=== PATIENT | female | born 1950 | race Caucasian/White ===

== ENCOUNTER 2023-03-29 13:59 | Observation (INO) ==
[2023-03-29 14:38] VITALS: BMI 35.5
--- NOTE | 2023-03-29 15:00 | DR.GENAD ---
HPI Time Seen Time Seen by Provider: 03/29/23 14:47 PCP Primary Care Physician: Lio De La Paz Complaint/Symptoms Chief Complaint Doctors Comments: 72 y/o female presents for evaluation. History of Schatzki's ring, esophageal stricture in the past, patient feels that it is causing her problems again. Stretched greater than a year ago. Having difficulty swallowing, foods and liquids. Feels that is worsening her COPD, coughing frequently with it, having difficulty getting up mucus. Strangled when she lays back. Sleeping with 3 pillows. No edema. Denies fevers or chills. Has a moist cough. Was diagnosed with flu last week. Chief Complaint:: Pt states "the ring in my throat is closing up", SOB with exertion, having to sleep sitting up, "I gurgle so much I can't hardly breathe", not eating, not drinking, unable to cough up mucus from chest d/t throat closing up Self Treatment fo Chief Complaint: States she is able to swallow meds w/o s/sx of choking, has to use swallowing precautions when this issue is exacerbated COVID-19 Coronavirus risk:travel/contact w/high risk person: No Has patient experienced Coronavirus symptoms: Yes Coronavirus symptoms experienced: Shortness of Breath Nurses notes reviewed Nurses Notes Review: Yes Source History Provided: Patient Mode of Arrival Mode of Arrival: Ambulatory Timing Onset of Chief Complaint: 03/08/23 PMH PMH Past Medical History: Yes Past Medical History: Arthritis, Asthma, COPD, GERD and Hypertension Past Medical History Comment: "arthritis from my neck to my feet", A.Fib, allergies, hx cervical cancer Past Surgical History: Yes Surgical History: Appendectomy, Cholecystectomy, Hysterectomy and Tonsillectomy Family History History of Family Medical Conditions: Yes Family Medical History: Diabetes Mellitus, Cancer, Coronary Artery Disease, Heart Failure and Hypertension Social History Does patient currently use any type of tobacco product: No Have you used tobacco products in the last 12 months: No Type of Tobacco Use: None Does any household member use tobacco: No Alcohol Use: None Do you use any recreational Drugs:: No Lives With: Family Lives Where: Home Travel Risk Coronavirus risk:travel/contact w/high risk person: No Has patient experienced Coronavirus symptoms: Yes Coronavirus symptoms experienced: Shortness of Breath Infectious screening In the last 2 months have you had wt loss of >10#?: NO Have you had fever, night sweats or hemotysis?: No Have you traveled outside the country in the last 6 months?: No Isolation: Standard ROS Review of Systems Constitutional: Weakness Eyes: No Symptoms Reported ENTM: No Symptoms Reported Respiratoy: Moist Cough and Short of Breath Cardiovascular: No Symptoms Reported Gastrointestinal/Abdominal: See HPI Genitourinary: No Symptoms Reported Neurological: No Symptoms Reported Musculoskeletal: No Symptoms Reported Integumentary: No Symptoms Reported All Other Systems: Reviewed and Negative PE Vital Signs Vitals: Vital Signs Temperature 98.7 F Pulse Rate 61 Respiratory Rate 29 Blood Pressure 149/70 O2 Sat by Pulse Oximetry 96 General General Appearance: Alert and In No Apparent Distress Eyes Eye exam: PERRL and EOMI ENT ENT Exam: Normal Exam, Normal Oropharynx and Mucous Membranes Moist Neck Neck Exam: Normal Inspection and Full ROM; negative Tenderness Respiratory Respiratory Exam: Other (+ faint exp wheezing); negative Accessory Muscle Use or Respiratory Distress Cardiovascular Cardiovascular Exam: Regular Rate, Normal Rhythm and Normal Heart Sounds Abdominal Exam Abdominal Exam: Normal Bowel Sounds and Soft; negative Tenderness Extremities Extremities Exam: Normal Inspection and Full ROM; negative Edema Back Back Exam: Normal Inspection Neurologic Neurological Exam: Alert, Oriented X3 and CN II-XII Intact; negative Motor Sensory Deficit Skin Skin Exam: Warm and Dry COURSE Treatment Treatment: 72-year-old female, history of COPD, history of Schatzki's ring, having increased difficulty in swallowing of the past several weeks. Feels that she may need to get it stretched again. Difficulty lying flat, feels gurgling in her chest. Having difficulty bringing up mucus. Has been coughing. Workup initiated. 1651 -labs overall acceptable has a normal CBC normal CMP troponin and BNP. She is positive for type a flu, she was positive last week as well. Will consult surgery, Dr. Galan, for EGD and probable esophageal stretching in the a.m., will admit to medicine, Dr. Ho ROR Labs Reviewed Laboratory Results Reviewed?: Yes 03/29/23 15:21 03/29/23 15:21 Laboratory: WBC 7.2 X10^3/uL (3.6-10.0) 03/29/23 15:21 RBC 4.32 X10^6/uL (3.5-5.4) 03/29/23 15:21 Hgb 12.7 g/dL (12.0-16.0) 03/29/23 15:21 Hct 37.8 % (36.0-47.0) 03/29/23 15:21 MCV 87.4 fL (80.0-100.0) 03/29/23 15:21 MCH 29.5 pg (27.0-34.0) 03/29/23 15:21 MCHC 33.7 g/dL (33.0-35.0) 03/29/23 15:21 RDW 13.5 % (11.6-16.5) 03/29/23 15:21 Plt Count 296 X10^3/uL (150.0-450.0) 03/29/23 15:21 MPV 7.5 fL (7.4-11.0) 03/29/23 15:21 Neut % (Auto) 60.8 % (42.0-75.0) 03/29/23 15:21 Lymph % (Auto) 28.6 % (21.0-51.0) 03/29/23 15:21 Yell % (Auto) 7.6 % (0.0-13.0) 03/29/23 15:21 Eos % (Auto) 1.9 % (0.9-2.9) 03/29/23 15:21 Baso % (Auto) 1.1 % (0.2-1.0) H 03/29/23 15:21 Neut # (Auto) 4.4 x10^3/uL (2.2-4.8) 03/29/23 15:21 Lymph # (Auto) 2.1 X10^3/uL (1.3-2.9) 03/29/23 15:21 Yell # (Auto) 0.5 x10^3/uL (0.3-0.8) 03/29/23 15:21 Eos # (Auto) 0.1 x10^3/uL (0.0-0.2) 03/29/23 15:21 Baso # (Auto) 0.1 X10^3/uL (0.0-0.1) 03/29/23 15:21 Absolute Nucleated RBC 0.0 /100WBC 03/29/23 15:21 Sodium 133 mmol/L (136-145) L 03/29/23 15:21 Corrected Sodium TNP 03/29/23 15:21 Potassium 4.1 mmol/L (3.5-5.1) 03/29/23 15:21 Chloride 100 mmol/L (98-107) 03/29/23 15:21 Carbon Dioxide 25.5 mmol/L (21-32) 03/29/23 15:21 BUN 6 mg/dL (7-18) L 03/29/23 15:21 Creatinine 0.59 mg/dL (0.55-1.02) 03/29/23 15:21 Est GFR (MDRD) Af Amer > 60 (>60) 03/29/23 15:21 Est GFR (MDRD) Non-Af > 60 (>60) 03/29/23 15:21 Glucose 81 mg/dL (65-99) 03/29/23 15:21 Calcium 9.1 mg/dL (8.5-10.1) 03/29/23 15:21 Corrected Calcium TNP 03/29/23 15:21 Total Bilirubin 0.60 mg/dL (0.2-1.0) 03/29/23 15:21 AST 29 Units/L (15-37) 03/29/23 15:21 ALT 25 Units/L (12-78) 03/29/23 15:21 Alkaline Phosphatase 109 Units/L (46-116) 03/29/23 15:21 Troponin I High Sens 8.8 ng/L (4.0-60.0) 03/29/23 15:21 B-Natriuretic Peptide 78.6 pg/mL (0-79) 03/29/23 15:21 Total Protein 7.8 g/dL (6.4-8.2) 03/29/23 15:21 Albumin 3.5 g/dL (3.4-5.0) 03/29/23 15:21 Globulin 4.3 g/dL (2.5-4.5) 03/29/23 15:21 Albumin/Globulin Ratio 0.8 Ratio (1.1-2.1) L 03/29/23 15:21 Lipase 15 Units/L (16-77) L 03/29/23 15:21 SARS-CoV-2 (PCR) Negative (NEGATIVE) 03/29/23 15:21 Influenza Type A (PCR) Positive (NEGATIVE) A 03/29/23 15:21 Influenza Type B (PCR) Negative (NEGATIVE) 03/29/23 15:21 RSV (PCR) Negative (NEGATIVE) 03/29/23 15:21 Sodium a bit low at 133. XRAY X-ray Results: CXR - + COPD changes. EKG Rate: 56 [place]: Normal Rhythm: NSR ST: Normal Opioid Opioid Risk Tool Age (Elliot box if 16-45): No History of Preadolescent Sexual Abuse: No Total: 0 Total Score Risk Category: Low Risk Copyright: [facility] predicting aberrant behaviors Discharge Plan Diagnosis Discharge Problem: Dysphagia, Influenza A, COPD (chronic obstructive pulmonary disease) Discharge Plan Patient Disposition: 09 ADMITTED INPATIENT Condition: Stable Orders to Discharge Patient Discharge Orders: Transfer (Routine); Ordered 03/29/23 Ordered By: Master Mcelroy
[2023-03-29] MEDS ORDERED: PROTONIX INJ 40 MG VIAL IVP ONE (15:11)
[2023-03-29] MEDS ORDERED: NS 500 ML IV 500 ML IV ONE ×2 (15:11→15:17)
[2023-03-29] MEDS ORDERED: PROTONIX INJ 40 MG VIAL ONE (15:17)
[2023-03-29 15:36] LABS: BASOPHILS # (AUTO) 0.1 X10^3/uL (0.0-0.1); BASOPHILS % (AUTO) 1.1 % (0.2-1.0); EOSINOPHILS # (AUTO) 0.1 x10^3/uL (0.0-0.2); EOSINOPHILS % (AUTO) 1.9 % (0.9-2.9); HEMATOCRIT 37.8 % (36.0-47.0); HEMOGLOBIN 12.7 g/dL (12.0-16.0); LYMPHOCYTES # (AUTO) 2.1 X10^3/uL (1.3-2.9); LYMPHOCYTES % (AUTO) 28.6 % (21.0-51.0); MEAN CORPUSCULAR HEMOGLOBIN 29.5 pg (27.0-34.0); MEAN CORPUSCULAR HGB CONC 33.7 g/dL (33.0-35.0); MEAN CORPUSCULAR VOLUME 87.4 fL (80.0-100.0); MEAN PLATELET VOLUME 7.5 fL (7.4-11.0); MONOCYTES # (AUTO) 0.5 x10^3/uL (0.3-0.8); MONOCYTES % (AUTO) 7.6 % (0.0-13.0); NEUTROPHILS # (AUTO) 4.4 x10^3/uL (2.2-4.8); NEUTROPHILS % (AUTO) 60.8 % (42.0-75.0); PLATELET COUNT 296 X10^3/uL (150.0-450.0); RED BLOOD COUNT 4.32 X10^6/uL (3.5-5.4); RED CELL DISTRIBUTION WIDTH 13.5 % (11.6-16.5); WHITE BLOOD COUNT 7.2 X10^3/uL (3.6-10.0)
[2023-03-29 15:50] LABS: ALANINE AMINOTRANSFERASE 25 Units/L (12-78); ALBUMIN 3.5 g/dL (3.4-5.0); ALKALINE PHOSPHATASE 109 Units/L (46-116); ASPARTATE AMINO TRANSFERASE 29 Units/L (15-37); BLOOD UREA NITROGEN 6 mg/dL (7-18); CALCIUM 9.1 mg/dL (8.5-10.1); CARBON DIOXIDE 25.5 mmol/L (21-32); CHLORIDE 100 mmol/L (98-107); CREATININE 0.59 mg/dL (0.55-1.02); GLUCOSE 81 mg/dL (65-99); LIPASE 15 Units/L (16-77); SODIUM 133 mmol/L (136-145); TOTAL PROTEIN 7.8 g/dL (6.4-8.2); eGFR NON BLACK RACES > 60 (>60)
[2023-03-29 15:56] LABS: POTASSIUM 4.1 mmol/L (3.5-5.1)
--- NOTE | 2023-03-29 16:12 | EKG ---
Test Reason : dyspnea Blood Pressure : */* mmHG Vent. Rate : 56 BPM Atrial Rate : 56 BPM P-R Int : 132 ms QRS Dur : 74 ms QT Int : 414 ms P-R-T Axes : 83 72 45 degrees QTc Int : 399 ms Sinus bradycardia Otherwise normal ECG No previous ECGs available Confirmed by Leeroy Sterling ([id number]) on 03/30/2023 9:33:13 AM Referred By: Confirmed By: Leeroy Sterling
[2023-03-29] MEDS ORDERED: CONSULT PHARMACY - POTASSIUM & MAGNESIUM XX SCH (18:13)
[2023-03-29] MEDS ORDERED: PULMICORT NEB TX 0.5 MG NEB ONE (19:34)
[2023-03-29] MEDS ORDERED: PROVENTIL NEB TX 0.083% 2.5MG/ 3ML ONE (19:34)
[2023-03-29] MEDS: D5 1/2 NS 1,000 ML 1,000 ML IV SCH (19:58)
[2023-03-29 19:59] LABS: POTASSIUM 3.7 mmol/L (3.5-5.1)
[2023-03-29] MEDS ORDERED: KLOR-CON PO SCH (21:00)
[2023-03-29] MEDS ORDERED: PATIENT'S HOME MEDICATION (Budesonide-Formoterol 160-4.5 mcg/actuation HFA aerosol inhaler IN SCH (21:00)
[2023-03-30] MEDS: PROVENTIL NEB TX 0.083% 2.5MG/ 3ML NEB SCH ×3 (00:56→13:50)
[2023-03-30] MEDS: PULMICORT NEB TX 0.5 MG NEB SCH ×2 (00:57→08:01)
--- NOTE | 2023-03-30 01:49 | RAD ---
EXAM:CHEST, 1 VIEWHISTORY:COUGH,DYSPNEA;COMPARISON:FINDINGS:The trachea is midline. The cardiac silhouette is unremarkable . The lungs are clear without focal infiltrate or effusion. The bony thorax is unremarkable.IMPRESSION:No acute cardiopulmonary disease.THIS IS AN ELECTRONICALLY VERIFIED FINAL [id number]/30/2023 1:45 AM - Electronically signed by Silas Myers MD
[2023-03-30] MEDS ORDERED: HIBICLENS WASH EXT ONE (03:38)
[2023-03-30] MEDS ORDERED: DIPRIVAN VIAL ONE (04:00)
[2023-03-30 06:24] LABS: HEMOGLOBIN 11.8 g/dL (12.0-16.0); RED CELL DISTRIBUTION WIDTH 13.5 % (11.6-16.5); WHITE BLOOD COUNT 4.6 X10^3/uL (3.6-10.0)
[2023-03-30 06:35] LABS: BASOPHILS % (AUTO) 0.6 % (0.2-1.0); EOSINOPHILS # (AUTO) 0.1 x10^3/uL (0.0-0.2); HEMATOCRIT 35.4 % (36.0-47.0); LYMPHOCYTES # (AUTO) 1.4 X10^3/uL (1.3-2.9); MEAN CORPUSCULAR HEMOGLOBIN 29.2 pg (27.0-34.0); MEAN CORPUSCULAR HGB CONC 33.4 g/dL (33.0-35.0); MEAN CORPUSCULAR VOLUME 87.4 fL (80.0-100.0); MEAN PLATELET VOLUME 7.9 fL (7.4-11.0); MONOCYTES # (AUTO) 0.4 x10^3/uL (0.3-0.8); MONOCYTES % (AUTO) 9.2 % (0.0-13.0); NEUTROPHILS # (AUTO) 2.6 x10^3/uL (2.2-4.8); NEUTROPHILS % (AUTO) 56.2 % (42.0-75.0); PLATELET COUNT 282 X10^3/uL (150.0-450.0); RED BLOOD COUNT 4.05 X10^6/uL (3.5-5.4)
[2023-03-30 06:50] LABS: ALANINE AMINOTRANSFERASE 19 Units/L (12-78); ALKALINE PHOSPHATASE 98 Units/L (46-116); ASPARTATE AMINO TRANSFERASE 18 Units/L (15-37); BLOOD UREA NITROGEN 4 mg/dL (7-18); CALCIUM 8.8 mg/dL (8.5-10.1); CARBON DIOXIDE 25.4 mmol/L (21-32); CHLORIDE 104 mmol/L (98-107); COR CA(FOR HYPOALB) 9.6 mg/dL (8.5-10.1); CREATININE 0.55 mg/dL (0.55-1.02); GLUCOSE 91 mg/dL (65-99); POTASSIUM 3.9 mmol/L (3.5-5.1); SODIUM 137 mmol/L (136-145); TOTAL PROTEIN 6.7 g/dL (6.4-8.2); eGFR NON BLACK RACES > 60 (>60)
[2023-03-30] MEDS: D5 1/2 NS 1,000 ML 1,000 ML IV SCH ×2 (07:28→09:54)
[2023-03-30] MEDS ORDERED: ELIQUIS PO SCH (09:00)
[2023-03-30] MEDS ORDERED: CARDIZEM CD 120 MG 24-HR PO SCH (09:00)
--- NOTE | 2023-03-30 09:13 | DR.H&P ---
H&P History & Physical for Day of: H&P Date: 03/30/23 Chief Complaint Chief Complaint: Dysphagia Allergies Allergies Allergy/AdvReac Type Severity Reaction Status Date / Time azithromycin Allergy Verified 03/29/23 14:41 hydromorphone [From Dilaudid] Allergy Verified 03/29/23 14:41 meloxicam [From Mobic] Allergy Verified 03/29/23 14:41 morphine Allergy Verified 03/29/23 14:41 prednisone Allergy Verified 03/29/23 14:41 History of Present Illness History of Present Illness: Pt is a 72 y/o female with a past medical history of COPD, Atrial fibrillation, Hypertension, Schatzki's ring, esophageal stricture in the past, presenting with difficulty swallowing, foods and liquids. She reports also having difficulty getting up mucus. Symptoms have been getting worse for the past week. Labs/imaging: WBC 4.6, hemoglobin 11.8, platelets 282, sodium 137, potassium 3.9, creatinine 0.55, glucose 91, influenza A positive, chest x-ray no acute cardiopulmonary findings. Patient admitted for further dysphagia. [facility]. Follow-up postprocedure results. Will keep n.p.o. at this time. Co ntinue IV fluids D5 half-normal saline at 80 mL/h. Holding home medications. Continue to closely monitor and follow-up labs. Past Medical History Past Medical History: Arthritis, Asthma, COPD, GERD and Hypertension Past Surgical History Surgical History: Appendectomy, Cholecystectomy, Hysterectomy and Tonsillectomy Family History Family Medical History: Diabetes Mellitus, Cancer, Coronary Artery Disease, Heart Failure and Hypertension Social History Does patient currently use any type of tobacco product: No Have you used tobacco products in the last 12 months: No Type of Tobacco Use: None Does any household member use tobacco: No Alcohol Use: None Drug Use: None Medications Home Medications: Home Medications Medication Instructions Recorded Confirmed Type apixaban 5 mg tablet (Eliquis) 5 mg PO BID 03/29/23 03/29/23 History budesonide-formoterol HFA 160 2 puff inhalation BID 03/29/23 03/29/23 History mcg-4.5 mcg/actuation aerosol inhaler cetirizine 10 mg tablet (Zyrtec) 10 mg PO QDAY 03/29/23 03/29/23 History diltiazem HCl 120 mg 120 mg PO QDAY 03/29/23 03/29/23 History capsule,extended release 24 hr levalbuterol tartrate 45 2 puff inhalation Q4H PRN 03/29/23 03/29/23 History mcg/actuation aerosol inhaler Labs 03/30/23 05:44 03/30/23 05:44 Labs: Laboratory WBC 4.6 X10^3/uL (3.6-10.0) 03/30/23 05:44 RBC 4.05 X10^6/uL (3.5-5.4) 03/30/23 05:44 Hgb 11.8 g/dL (12.0-16.0) L 03/30/23 05:44 Hct 35.4 % (36.0-47.0) L 03/30/23 05:44 MCV 87.4 fL (80.0-100.0) 03/30/23 05:44 MCH 29.2 pg (27.0-34.0) 03/30/23 05:44 MCHC 33.4 g/dL (33.0-35.0) 03/30/23 05:44 RDW 13.5 % (11.6-16.5) 03/30/23 05:44 Plt Count 282 X10^3/uL (150.0-450.0) 03/30/23 05:44 MPV 7.9 fL (7.4-11.0) 03/30/23 05:44 Neut % (Auto) 56.2 % (42.0-75.0) 03/30/23 05:44 Lymph % (Auto) 31.0 % (21.0-51.0) 03/30/23 05:44 [place] % (Auto) 9.2 % (0.0-13.0) 03/30/23 05:44 Eos % (Auto) 3.0 % (0.9-2.9) H 03/30/23 05:44 Baso % (Auto) 0.6 % (0.2-1.0) 03/30/23 05:44 Neut # (Auto) 2.6 x10^3/uL (2.2-4.8) 03/30/23 05:44 Lymph # (Auto) 1.4 X10^3/uL (1.3-2.9) 03/30/23 05:44 [place] # (Auto) 0.4 x10^3/uL (0.3-0.8) 03/30/23 05:44 Eos # (Auto) 0.1 x10^3/uL (0.0-0.2) 03/30/23 05:44 Baso # (Auto) 0.0 X10^3/uL (0.0-0.1) 03/30/23 05:44 Absolute Nucleated RBC 0.1 /100WBC 03/30/23 05:44 Sodium 137 mmol/L (136-145) 03/30/23 05:44 Corrected Sodium TNP 03/30/23 05:44 Potassium 3.9 mmol/L (3.5-5.1) 03/30/23 05:44 Chloride 104 mmol/L (98-107) 03/30/23 05:44 Carbon Dioxide 25.4 mmol/L (21-32) 03/30/23 05:44 BUN 4 mg/dL (7-18) L 03/30/23 05:44 Creatinine 0.55 mg/dL (0.55-1.02) 03/30/23 05:44 Est GFR (MDRD) Af Amer > 60 (>60) 03/30/23 05:44 Est GFR (MDRD) Non-Af > 60 (>60) 03/30/23 05:44 Glucose 91 mg/dL (65-99) 03/30/23 05:44 Calcium 8.8 mg/dL (8.5-10.1) 03/30/23 05:44 Corrected Calcium 9.6 mg/dL (8.5-10.1) 03/30/23 05:44 Magnesium 2.0 mg/dL (2.0-2.9) 03/30/23 05:44 Total Bilirubin 0.50 mg/dL (0.2-1.0) 03/30/23 05:44 AST 18 Units/L (15-37) 03/30/23 05:44 ALT 19 Units/L (12-78) 03/30/23 05:44 Alkaline Phosphatase 98 Units/L (46-116) 03/30/23 05:44 Troponin I High Sens 8.8 ng/L (4.0-60.0) 03/29/23 15:21 B-Natriuretic Peptide 78.6 pg/mL (0-79) 03/29/23 15:21 Total Protein 6.7 g/dL (6.4-8.2) 03/30/23 05:44 Albumin 3.0 g/dL (3.4-5.0) L 03/30/23 05:44 Globulin 3.7 g/dL (2.5-4.5) 03/30/23 05:44 Albumin/Globulin Ratio 0.8 Ratio (1.1-2.1) L 03/30/23 05:44 Lipase 15 Units/L (16-77) L 03/29/23 15:21 SARS-CoV-2 (PCR) Negative (NEGATIVE) 03/29/23 15:21 Influenza Type A (PCR) Positive (NEGATIVE) A 03/29/23 15:21 Influenza Type B (PCR) Negative (NEGATIVE) 03/29/23 15:21 RSV (PCR) Negative (NEGATIVE) 03/29/23 15:21 Review of Systems Constitutional: No Symptoms Reported Eyes: No Symptoms Reported ENT: Other (dysphagia) Respiratory: Cough Cardiovascular: No Symptoms Reported Gastrointestinal: No Symptoms Reported Genitourinary: No Symptoms Reported Musculoskeletal: No Symptoms Reported Skin: No Symptoms Reported Neurological: No Symptoms Reported Physical Exam Vital Signs: Vital Signs Temperature 98.2 F Pulse Rate [Brachial] 62 Respiratory Rate 20 Blood Pressure [Right Arm] 127/62 O2 Sat by Pulse Oximetry 94 Oriented: Normal Eyes: Normal Ear: Normal Nose: Normal Throat: Normal Respiratory: Diminished Throughout and Wheezes Throughout (faint bilateral end expiratory) Cardiovascular: Normal : Normal Auscultation: Bowel Sounds: Normal Palpation: Normal Tenderness: Normal Skin: Normal Musculoskeletal: Normal Psychiatric: Normal Mood Description: Calm and Appropriate Affect: Normal Speech Pattern: Clear and Appropriate Assessment/Plan (1) Dysphagia: Narrative Support Text: General consulted-Dr Valdes Keep NPO and plan for EGD today Status: Acute (2) Influenza A: Status: Acute (3) Bronchitis: Status: Acute (4) COPD (chronic obstructive pulmonary disease): Status: Acute Review H&P Reviewed: Yes Patient was examined?: Yes
[2023-03-30] MEDS ORDERED: DIPRIVAN VIAL 20 ML ONE (11:23)
[2023-03-30] MEDS ORDERED: PROTONIX INJ 40 MG VIAL IVP SCH (11:37)
[2023-03-30] MEDS ORDERED: CARAFATE PO SCH (14:00)
[2023-03-30 15:09] VITALS: RESP 18
[2023-03-30 15:12] VITALS: TEMP 98
[2023-03-30 15:13] VITALS: BP 152/72; PULSE 83; O2SAT 97
== END 2023-03-30 15:05 | disposition home or self-care (01) ==
LOC: ER 13:59 → MED/SURG 13:59
PROVIDERS: ADMIT Family Medicine; ATTEND Family Medicine